=== PATIENT | female | born 1990 | race African-American/Black ===

== ENCOUNTER 2017-04-30 01:42 | Emergency (ER) | payer OTHER | END 2017-04-30 02:21 | disposition home or self-care (01) | LOC: ER 01:42 | DX: S90.32XA Contusion of left foot, initial encounter (principal); W22.8XXA Striking against or struck by other objects, initial encounter; Y93.89 Activity, other specified; Y99.8 Other external cause status; Y92.89 Other specified places as the place of occurrence of the external cause | CPT/HCPCS: 73630; 99284 ==